=== PATIENT | male | born 1950 | race Caucasian/White ===

== ENCOUNTER 2017-01-06 22:30 | Emergency (ER) | payer OTHER ==
[~2017-01-06] VITALS: Ht 177.8 cm; Wt 72.0 kg
[2017-01-06 22:33] VITALS: BP 153/90; PULSE 91; RESP 22; O2SAT 99
--- NOTE | 2017-01-07 00:16 | ED.REPORT ---
HPI-General Illness Date of Service Jan 07, 2017 ED Provider: Sterling Corley MD Patient is a 66 year old male with a hx of DM and HTN who presents to the ED complaining of back pain that radiates to his abdomen. He reports that he has a "cyst" on the R side of his back close to L1. This was apparently a psoas abscess of uncertain cause. He was at [facility] on IV abx and released on the . He denies fevers, extremity pain, sciatic symptoms, incontinence, or any other symptoms. Nursing Notes Stated Complaint: LOWER BACK PAIN Chief Complaint: Back Pain or Injury Nursing Notes Reviewed: Yes Allergies: Coded Allergies: No Known Allergies (Unverified Allergy, Unknown, 02/17/16) General Time Seen by MD: 00:15 Chief Complaint Back pain Hx Obtained From: Patient Arrived By: Walk-in Onset Occurred: Onset unknown Symptom Duration: Since onset Location: : Back Quality: Painful Severity: Current: Moderate Severity: Maximum: Moderate Associated with: Reports: Abdominal pain Exacerbated by: Moving affected area Relieved by: Remaining still Recent Healthcare: Recent doctor visit Similar Sx Previous: Yes Past Medical History Past Medical History Peripheral neuropathy Psoas abscess Diabetes Hypertension Reports: Diabetes mellitus, Hypertension Past Surgical History Left knee surgery Reports: Cataract surgery, Inguinal hernia repair Smoking History Unknown if Ever Smoker Social History Alcohol Use: Denies alcohol use Drug Use: THC Ambulatory Status Independent Review of Systems Full Review of Systems Constitutional: Denies: Fever GI: Reports: Abdominal pain Musculoskeletal: Reports: Back pain, Denies: Extremity pain Neurologic: Denies: Bladder dysfunction, Bowel dysfunction Complete sys rev & neg: except as marked. Physical Exam Vital Signs Vital Signs Date Time Temp Pulse Resp B/P Pulse Ox O2 Delivery O2 Flow Rate FiO2 01/07/17 06:41 36.8 80 14 152/78 98 Room Air 01/07/17 04:15 36.8 86 16 156/88 96 Room Air 01/07/17 02:00 36.7 88 20 148/86 99 Room Air 01/06/17 22:33 36.4 91 22 153/90 99 Room Air Initial VS: Reviewed Head / Eyes: Atraumatic, Normocephalic Neck: Full range of motion Respiratory: No respiratory distress Cardiovascular: Regular rate & rhythm, Heart sounds normal, Intact distal pulses Psychiatric: Mood/affect normal, Behavior normal, Normal thought content General/Constitutional: Awake, Alert, No acute distress, Well appearing, Well developed Back: Atraumatic Mildly tender with flexion of hips Lower Extremity / Pelvis / MS: No deformity Distal sensation is baseline Skin: Warm, Dry Color / Condition: Positive: Rash present Rash / Lesion Notes: Rash consistent with shingles present on R side of abdomen Neurologic: Oriented X3, Speech NL Interpretation & Diagnostics Lab Results Interpretation Result Diagram: 01/07/17 0050 01/07/17 0050 Test 01/07/17 00:50 01/07/17 01:00 White Blood Count 7.8th/mm3 (3.8-10.1) Red Blood Count 4.12mil/mm3 (4.40-5.80) Hemoglobin 10.9g/dL (13.8-17.2) Hematocrit 32.2% (41.0-50.0) Mean Corpuscular Volume 78.2fL (81-100) Mean Corpuscular Hemoglobin 26.5pg (27.0-35.0) Mean Corpuscular Hemoglobin Concent 33.9% (32.0-37.0) Red Cell Distribution Width 15.5% (12.3-15.4) Platelet Count 515bil/L (150-400) Neutrophils (%) (Auto) 69.6% (40-74) Lymphocytes (%) (Auto) 17.4% (14-46) Monocytes (%) (Auto) 9.8% (4-12) Eosinophils (%) (Auto) 2.3% (0-5) Basophils (%) (Auto) 0.6% (0-3) Erythrocyte Sedimentation Rate 105mm/hr (0-30) Prothrombin Time 10.8sec (8.1-12.5) Prothromb Time International Ratio 1.01ratio Activated Partial Thromboplast Time 18.9sec (22.8-33.0) Sodium Level 131mEq/L (134-144) Potassium Level 3.9mEq/L (3.5-5.2) Chloride Level 90mEq/L (97-108) Carbon Dioxide Level 18mmol/L (18-29) Blood Urea Nitrogen 16mg/dL (8-27) Creatinine 0.75mg/dL (0.76-1.27) Estimat Glomerular Filtration Rate 111mL/min (>59) Glucose Level 162mg/dL (60-99) Lactic Acid Level 1.9mmol/L (0.4-2.0) Calcium Level 9.9mg/dL (8.5-10.1) Phosphorus Level 2.8mg/dL (2.5-4.9) Magnesium Level 1.3mg/dL (1.6-2.6) Total Bilirubin 0.4mg/dL (0.0-1.2) Aspartate Amino Transf (AST/SGOT) 19U/L (0-50) Alanine Aminotransferase (ALT/SGPT) 14U/L (0-44) Alkaline Phosphatase 84U/L (25-160) Troponin T 0.010ug/L (0.0-0.011) Total Protein 8.6g/dL (6.4-8.4) Albumin 3.9g/dL (3.4-5.0) Lipase 10U/L (13-60) Procalcitonin 0.07ng/mL (0.00-0.08) Urine Color Yellow (YELLOW) Urine Appearance Clear (CLEAR,HAZY) Urine pH 8.0 (5.0-8.0) Urine Specific [place] 1.015 (1.003-1.035) Urine Protein Tracemg/dL (NEG,TRACE) Urine Glucose (UA) Negativemg/dL (NEGATIVE) Urine Ketones 80mg/dL (NEGATIVE) Urine Occult Blood Negative (NEGATIVE) Urine Nitrite Negative (NEGATIVE) Urine Bilirubin Negative (NEGATIVE) Urine Urobilinogen Normalmg/dL (NORMAL) Urine Leukocyte Esterase Negative (NEGATIVE) Urine RBC 0-2/hpf (0-2) Urine WBC 0-5/hpf (0-5) Urine Epithelial Cells Occasional/hpf (NONE-MOD) Urine Crystals None seen (NONE SEEN) Urine Bacteria None/hpf (NONE-FEW) Urine Hyaline Casts None/lpf (NONE) Urine Granular Casts None seen (NONE SEEN) Urine Waxy Casts None seen (NONE SEEN) Urine Red Blood Cell Casts None seen (NONE SEEN) Urine White Blood Cell Casts None seen (NONE SEEN) Urine Mucus None seen (None Seen) Urine Trichomonas None seen (NONE SEEN) Urine Yeast None (NONE SEEN) Urinalysis Comment None Urine Culture Reflexed Not indicated X-Ray Chest Interpretation Chest Xray Interpretation: Negative View: Portable, 1 view Interpretation / Wet Read by: Interpret - ED physician CT Abd / Pelvis Interpretation CONCLUSION: Findings of osteomyelitis/discitis with small bilateral associated psoas abscesses. Protrusion of soft tissue density posteriorly from the narrowed L1/2 disc space, narrowing the AP diameter of the spinal canal and compressing the thecal sac, secondary to abscess and/or disc extrusion. Distended gallbladder containing small gallstones. Denton Laureano M.D. Study type: Abdominal CT IV contrast Interpretation / Wet Read by: Interpret - Radiologist Re-Eval/Medical Decision Med Decision/Clinical Course 66-year-old with diabetes and a recent history of a psoas abscess, presents after conclusion of his antibiotic therapy with increasing pain. His initial imaging was [place] and then subsequent imaging at [facility]. We have no comparisons immediately available. His increased pain prompted a repeat CT scan, which shows bilateral psoas abscesses, discitis and osteomyelitis at the L2 level, and soft tissue mass from the disc pressing posteriorly into the spinal canal with 60% effacement of the thecal sac. Consultation and potential transfer sought with [facility], and spine surgery will not be available for consultation until 6 AM. Signed out to Dr. Galeano for disposition after that consultation is occurred. May require transfer. Time of Eval: 03:11 Re-Evaluation/Progress Note: Advised pt that [facility] will not view films until morning. Patient understands and agrees with plan. All questions addressed at this time. Consultation : Call Returned at: 03:08 Note: Discussed pt's case with [facility]. They refused to review his films until 0600. Counseled Regarding: Diagnosis, Lab results Discharge & Departure Shift Change Sign-Out Patient Care Transferred: Yes Discussed Complaint(s): Yes Laboratory Evaluation: Back, reviewed by me Imaging Studies: Done, wet read by me Transfer of care to Dr. Shukla at 0600. Primary Impression: Epidural abscess Discharge Condition All VS Reviewed: Yes Condition: Stable Referrals: [facility] Care Transferred to: Dr. Shukla Care Transferred at: 06:00 Scribe Attestation Portions of this note were transcribed by Luna Leone. I, Dr. Corley personally performed the history, physical exam and medical decision-making; I reviewed and confirmed the accuracy of the information in the transcribed note. Signed by: Luna Leone 01/07/2017, 0600 copies to: [facility] Glenn Corley MD Jan 07, 2017 00:16 LUNA LEONE Jan 07, 2017 00:23
[2017-01-07] MEDS ORDERED: Ondansetron 2 mg/mL 2 mL Inj IVPUSH ONE (00:25)
[2017-01-07 01:06] LABS: BASOPHILS % (AUTO) 0.6 % (0-3); EOSINOPHILS % (AUTO) 2.3 % (0-5); MONOCYTES % (AUTO) 9.8 % (4-12); Mean Corpuscular Hemoglobin 26.5 pg (27.0-35.0); Mean Corpuscular Volume 78.2 fL (81-100); NEUTROPHILS % (AUTO) 69.6 % (40-74); Platelet Count 515 bil/L (150-400)
[2017-01-07] MEDS: HYDROmorphone 0.5 mg/0.5 mL iSecure Syringe IVPUSH PRN ×4 (01:11→13:55)
[2017-01-07 01:20] LABS: INR 1.01 ratio
[2017-01-07 01:27] LABS: TROPONIN T 0.01 ug/L (0.0-0.011)
[2017-01-07 01:32] LABS: APPEARANCE,URINE CLEAR (CLEAR,HAZY); COLOR,URINE YELLOW (YELLOW); OCCULT BLOOD,URINE NEGATIVE (NEGATIVE); UROBILINOGEN,URINE NORMAL (NORMAL)
[2017-01-07 01:32] LABS: Magnesium 1.3 mg/dL (1.6-2.6); Phosphorus 2.8 mg/dL (2.5-4.9)
[2017-01-07 01:34] LABS: ERYTHROCYTE SEDIMENTATION RATE 105 mm/hr (0-30)
[2017-01-07 02:00] VITALS: BP 148/86; PULSE 88; RESP 20; O2SAT 99
[2017-01-07] MEDS ORDERED: Alum-Mag Hydrox-Simeth 30 mL Suspension PO ONE (03:10)
[2017-01-07 04:15] VITALS: BP 156/88; PULSE 86; RESP 16; O2SAT 96
[2017-01-07] MEDS ORDERED: Cefepime Inj 2,000 MG in Dextrose 5% Minibag Plus 100 ML IV ONE (06:25)
[2017-01-07] MEDS ORDERED: Vancomycin Inj 1,500 MG in 0.9% Sodium Chloride 500 ML IV ONE (06:35)
[2017-01-07 06:41] VITALS: BP 152/78; PULSE 80; RESP 14; O2SAT 98
[2017-01-07] MEDS ORDERED: Vancomycin Dose per Pharmacist XX SCH (08:30)
--- NOTE | 2017-01-07 08:50 | DRSVH ---
PROCEDURE: X-RAY CHEST ONE VIEW, PORTABLE ([id number]) INDICATIONS: psoas abscess, increased pain TECHNIQUE: One view of the chest was acquired. COMPARISON: None. FINDINGS: Surgical changes and devices: None. Lungs and pleura: No pleural effusions or pneumothorax. Lungs are clear. Mediastinum: Mediastinal contours appear normal. Heart size is normal. Bones and chest wall: No suspicious bony lesions. Overlying soft tissues appear unremarkable. IMPRESSION: No acute cardiopulmonary disease. Dictated by: Yuriy Tom [facility] Interpreted: Jo Wilson MD on 01/07/2017 at 8:49 Transcribed by: SELENE on 01/07/2017 at 8:49 Approved by: Jo Wilson MD, PhD on 01/07/2017 at 9:46
--- NOTE | 2017-01-07 10:29 | DRSVH ---
PROCEDURE: CT ABDOMEN AND PELVIS WITH CONTRAST ([id number]) INDICATIONS: psoas abscess TECHNIQUE: After the administration of intravenous contrast, 5 mm thick sections acquired from the diaphragm to the symphysis. 5 mm coronal and sagittal reformats were acquired. For radiation dose reduction, the following was used: automated exposure control, adjustment of mA and/or kV according to patient siz e. COMPARISON: None. FINDINGS: Image quality: Excellent. ABDOMEN: Lung bases: Lung bases are clear. Heart size is normal. Solid organs: Liver and spleen are normal in size and enhancement. Gallbladder contains multiple ga llstones. Biliary system is non dilated. Pancreas enhances normally. No adrenal nodules. Kidneys demonstrate normal size and enhancement, without hydronephrosis. Peritoneum and bowel: Bowel loops demonstrate normal wall thickness and caliber. No free fluid or a ir. The appendix is normal. Nodes and vessels: No retroperitoneal or mesenteric adenopathy by size criteria. Aorta and inferior vena cava are normal in size. Scattered atherosclerotic calcifications involving the abdominal and p elvic vasculature. Miscellaneous: No ventral hernias. PELVIS: Genitourinary: Bladder wall thickness is normal. Miscellaneous: No inguinal hernias or adenopathy. Bones: Vertebral body endplate destruction noted adjacent to the L1-L2 disc compatible with discitis/ osteomyelitis. Soft tissue density lesion adjacent to the posterior margin of the L1-L2 disc space tristan spicious for anterior epidural abscess is causing severe central canal stenosis. Paraspinous soft tis ericka inflammation noted adjacent to the L1 and L2 vertebral bodies. There is a small, approximately 2. 1 x 1.2 cm fluid collection with peripheral enhancement involving the anterior right psoas muscle com patible with abscess. There is an approximately 2.2 x 1.3 cm bilobed fluid collection with peripheral enhancement in the anterior left psoas muscle compatible with abscess Spine degenerative disc diseas e and facet arthropathy. IMPRESSION: 1. L1-L2 discitis/osteomyelitis. 2. Small bilateral psoas abscesses adjacent to the L1-L2 discitis. 3. Probable epidural abscess level of the L1-L2 disc space causing severe central canal stenosis. 4. Cholelithiasis. Dictated by: Jo Wilson MD, PhD on 01/07/2017 at 10:19 Approved by: Jo Wilson MD, PhD on 01/07/2017 at 10:27
[2017-01-07 10:47] VITALS: BP 156/86; PULSE 83; RESP 20; O2SAT 98
--- NOTE | 2017-01-07 11:20 | DRSVH ---
PROCEDURE: MRI CERVICAL SPINE WITH AND WITHOUT CONTRAST ([id number]) INDICATIONS: spinal abscess TECHNIQUE: Noncontrast sagittal T1 spin echo and T2 fast spin echo, sagittal STIR, foraminal oblique sagittal T2 fast spin echo, axial gradient echo or T2 fast spin echo through the cervical spine. After the admi nistration of contrast, axial and sagittal T1 spin echo with fat saturation through the cervical spin e. COMPARISON: [facility], MR, MR THORACIC SPINE W&WO CON, 01/07/2017, 9:12. [facility], MR, MR LUMBAR SPINE W&WO CON, 01/07/2017, 9:12. [facility], CT, CT ABD PELVIS W CON, 01/07/2017, 2:29. FINDINGS: Image quality: Excellent. Alignment and curvature: There is normal bony alignment. Marrow: There is diffusely increased marrow signal at C3, C4, C5, C6 and C7 with low level increased enhancement on postcontrast images. There is increased enhancement involving the intervertebral discs at C3-C4, C4-C5, C5-C6 and C6-C7, suspicious for discitis and vertebral osteomyelitis. Spinal cord: Visualized spinal cord has normal size and signal. No cerebellar tonsillar herniation. No abnormal intramedullary enhancement. Paraspinous soft tissues: Prevertebral soft tissue thickening in lower cervical spine. There is a sm all amount of prevertebral fluid at level of C4 and C5. No paravertebral masses or suspicious enhance ment. C2-3: Mild loss of disc height and moderate disc desiccation. There is broad posterior disc bulge. The central canal is mildly narrowed. Mild bilateral foraminal stenosis. C3-4: Severe loss of disc height and abnormal disc enhancement suspicious for vertebral osteomyelitis . There is broad posterior disc bulge. The central canal is mildly narrowed. Mild bilateral foramin al stenosis. C4-5: Mild loss of disc height and moderate to severe disc desiccation. There is abnormal disc enhan cement suspicious for vertebral osteomyelitis. There is broad posterior disc bulge with large disc o steophyte complex. Mild bilateral facet arthropathy. The central canal is moderately narrowed. Sever e left and moderate right foraminal stenosis. C5-6: Moderate to severe loss of disc height and disc desiccation. There is abnormal disc enhancement suspicious for vertebral osteomyelitis. There is broad posterior disc bulge with disc osteophyte co mplex. Mild bilateral facet arthropathy. The central canal is moderately narrowed. Mild to moderate bilateral foraminal stenosis. C6-7: Moderate to severe loss of disc height and disc desiccation. There is abnormal disc enhancemen t suspicious for vertebral osteomyelitis. There is broad posterior disc bulge with large disc osteop hyte complex. Mild bilateral facet arthropathy. The central canal is mildly narrowed. Mild to modera te bilateral foraminal stenosis. C7-T1: Normal appearance. IMPRESSION: 1. Diffuse abnormal marrow signal involving C3, C4, C5, C6 and C7 with mildly increased enhancement. There is also enhancement in intervertebral discs at C3-C4, C4-C5, C5-C6 and C6-C7. The MRI findings are consistent with discitis and vertebral osteomyelitis. 2. There is prevertebral soft tissue thickening in lower cervical spine. There is small amount of pre vertebral soft tissue fluid anterior to C3 and C4 which could represent developing abscess. 3. Multilevel degenerative disc disease and facet arthropathy as described. 4. Moderate central canal stenosis at C4-C5, C5-C6, and mild central canal stenosis at C2-C3, C3-C4 a nd C6-C7. 5. Multilevel foraminal stenosis as described. Dictated by: Aleksandar Coley M.D. on 01/07/2017 at 11:07 Transcribed by: JOSE RAMON on 01/07/2017 at 11:21 Approved by: Aleksandar Coley M.D. on 01/07/2017 at 18:15
--- NOTE | 2017-01-07 12:14 | DRSVH ---
PROCEDURE: MRI LUMBAR SPINE WITH AND WITHOUT CONTRAST ([id number]) INDICATIONS: spinal abscess TECHNIQUE: Noncontrast sagittal T1 spin echo and T2 fast spin echo, sagittal STIR, axial T1 and T2 fast spin ech o through the lumbar spine. In cases with scoliosis, additional coronal T2 fast spin echo may be per formed. After the administration of contrast, sagittal and axial T1 spin echo with fat saturation th rough the lumbar spine. COMPARISON: [facility], CT, CT ABD PELVIS W CON, 01/07/2017, 2:29. [facility], MR, MR CERVICAL SPINE W&WO CON, 01/07/2017, 9:12. [facility], MR, MR THORACIC SPINE W&W O CON, 01/07/2017, 9:12. FINDINGS: Image quality: Excellent. Alignment and curvature: There is normal bony alignment. Marrow: There is diffuse abnormal marrow signal and abnormal enhancement in L1 and L2 vertebral eddi s, consistent with vertebral osteomyelitis. There is also abnormal enhancement involving the L1-L2 in tervertebral disc consistent with discitis. A large posterior osteophyte at L1-L2 demonstrates abnor mal enhancement. There is severe narrowing of the central canal at this level. There is associated ep idural enhancement consistent with epidural spread of infection. There is ill-defined fluid signal in epidural space, suspicious for epidural abscess. There are paravertebral enhancement and fluid colle ctions involving the adjacent psoas muscles bilaterally consistent with abscess. On the left side, co mplex fluid collection measures 1.3 x 2.8 cm. On the right side, there is if fluid collection measure s 1.6 x 2.6 cm. There is loss of vertebral body height of L1 and L2. Spinal cord: Conus medullaris terminates at the L1-L2 level. Visualized spinal cord demonstrates no rmal signal, without suspicious enhancement. Paraspinous soft tissues: No paravertebral masses or abnormal enhancement. L1-L2: Large posterior disc osteophyte causing severe central canal stenosis. There is abnormal enhan cement of the ossified consistent with osteomyelitis. There is diffuse abnormal epidural enhancement with ill-defined complex fluid consistent with epidural abscess. L2-L3: Moderate loss of disc height and disc desiccation. There is subtle increased disc enhancement suspicious for developing discitis. There is posterior disc bulge and disc osteophyte complex. The central canal is mildly narrowed. Severe bilateral foraminal stenosis. L3-L4: Moderate loss of disc height and disc desiccation. There is increased T2 signal in contrast of the intervertebral disc suspicious for developing discitis. There is posterior disc bulge and disc osteophyte complex. Severe bilateral facet arthropathy. The central canal is patent. Moderate to se anabella bilateral foraminal stenosis. L4-L5: Moderate loss of disc height and disc desiccation. There is increased disc T2 signal and con trast enhancement suspicious for developing discitis. There is posterior disc bulge and disc osteophy te complex. Severe bilateral facet arthropathy. The central canal is patent. Moderate to severe bila teral foraminal stenosis. L5-S1: Severe loss of disc height and broad posterior disc bulge. There is mild bilateral facet arthr opathy. No central canal stenosis. Moderate left and mild right foraminal stenosis. IMPRESSION: 1. Discitis and vertebral osteomyelitis involving L1 and L2 vertebral bodies, as well as the L1-L2 in tervertebral disc. There is abnormal epidural enhancement and complex fluid collections involving adj acent paravertebral soft tissue consistent with paravertebral/epidural abscesses as described above. A large posterior osteophyte demonstrates abnormal enhancement extruding posteriorly abutting the ant erior surface of the thecal sac which is severely narrowed. Neurosurgical consultation is recommended . 2. There is increased disc T2 signal and postcontrast enhancement at L2-L3, L3-L4 and L4-L5 suspiciou s for early or developing discitis. No paravertebral soft tissue thickening or fluid collections at t hese levels. 3. Multilevel degenerative disc disease and facet arthropathy as described. 4. Severe central canal stenosis at L1-L2 and mild central canal stenosis at L2-L3. 3. Multilevel foraminal stenosis as described. The result was discussed with Dr. Leija in ER on 01/07/2017 at 1155 hours. Dictated by: Aleksandar Coley M.D. on 01/07/2017 at 11:21 Transcribed by: JOSE RAMON on 01/07/2017 at 12:15 Approved by: Aleksandar Coley M.D. on 01/07/2017 at 18:11
--- NOTE | 2017-01-07 12:17 | DRSVH ---
PROCEDURE: MRI THORACIC SPINE WITH AND WITHOUT CONTRAST ([id number]) INDICATIONS: spinal abscess TECHNIQUE: Noncontrast sagittal T1 spin echo and T2 fast spin echo, sagittal STIR, axial T1 and T2 fast spin ech o through the thoracic spine. After the administration of contrast, axial and sagittal T1 spin echo with fat saturation through the thoracic spine. COMPARISON: None. FINDINGS: Image quality: Excellent. Alignment and curvature: There is normal bony alignment. Marrow: Abnormal marrow signal and enhancement in L1 and L2, as well as L1-L2 intervertebral disc as described in lumbar spine report. Mild degenerative marrow signal changes are present at T3 and T4. Spinal cord: Visualized spinal cord is of normal signal and size, without abnormal enhancement. Paraspinous soft tissues: No paravertebral masses or abnormal enhancement. Miscellaneous: Central canal and foramina appear widely patent at all scanned levels. There is mild degenerative disease throughout the lumbar spine. Mild central canal stenosis at T7-T8. IMPRESSION: 1. No evidence for discitis/vertebral osteomyelitis in the thoracic spine. 2. Discitis and vertebral osteomyelitis at L1-L2. Please see separate lumbar spine MRI report. 3. Mild central canal stenosis at T7-T8 secondary to posterior disc bulge. Dictated by: Aleksandar Coley M.D. on 01/07/2017 at 12:15 Transcribed by: JOSE RAMON on 01/07/2017 at 12:18 Approved by: Aleksandar Coley M.D. on 01/07/2017 at 18:11
[2017-01-07] MEDS ORDERED: ACYCLOVIR IV ONE (12:28)
[2017-01-07] MEDS ORDERED: SODIUM CHLORIDE 0.9% IV ONE (12:28)
[2017-01-07 13:48] VITALS: BP 160/91; PULSE 85; RESP 20; O2SAT 98
[2017-01-07] MEDS ORDERED: Ondansetron 2 mg/mL 2 mL Inj IVPUSH PRN (13:50)
--- NOTE | 2017-01-07 15:40 | CONS ---
[address] [address] CONSULTATION REPORT PATIENT: ARTURO TYSON : 1950 MR#: [id number] ADMIT: 01/06/2017 JOB ID: [id number] DATE OF SERVICE: 01/07/2017 INFECTIOUS DISEASE CONSULTATION: I thank Dr. Sterling Corley of the emergency department staff. 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 HISTORY OF PRESENT ILLNESS: The patient is a 66-year-old gentleman on whom we have very few records. We know in speaking to the patient he has an underlying history of diabetes as well as PTSD incurred during his service in the [place]. He is considered 100% [place] because of [place]. The patient resides by himself on [place] and he tells us he tells us that he is usually relatively healthy and quite active. The patient was hospitalized back in October at [facility] in [place] with what was described as a psoas abscess. He received a course of intravenous antibiotics there and was subsequently transferred to the [facility] nursing [facility]. There he received another course of IV antibiotics which he says was about 10 days long, then his antibiotics were ended, only to have some recurrence of his symptoms. The antibiotics were then restarted and continued for another 10 days or so, and then finally stopped. At that point he states that he had a normal white count and that a followup CT scan, perhaps done in [place], showed improvement. Following that, the patient was discharged back to his home on [place]. He tells us that throughout this long odyssey his back pain never completely resolved and in fact started to get worse again rather precipitously after he stopped his antibiotics and went home. Because of that, the patient came to our emergency department last night for reevaluation and reconsideration of his increasing back pain. His back pain is lower thoracic to lumbar region and he states that it had been getting worse for several days, but there was no associated fevers, chills, and not much in the way of sweats. He denied any significant pulmonary or GI symptoms. He denied any bowel or bladder problems and has denied weakness or numbness in his lower extremities or in the saddle area around his perineum. After he was seen in the ER this morning, the patient underwent CT scanning which raised grave concerns about vertebral osteo, continued psoas abscess, and perhaps spinal epidural abscess. I was contacted this morning and on this basis recommended the patient be transferred to a center with neurosurgical capabilities. So far, that has not happened and so I came down to see the patient early this afternoon in the ER. There I encountered him lying in bed, saying that he had considerable pain in his back depending on particular movements he made, but that he was not weak in the legs, was not having bowel or bladder problems, and not having fevers or chills. He does have a moderate degree of pain, interestingly more in his thoracic spine than lumbar, and he also complains of the recent development of neck pain which sounds to be relatively new. It has also been noted that he has a rash extending around his right side which is zosteriform. PAST MEDICAL HISTORY: Diabetes and severe PTSD. We know little else about this patient as we really have no records at our facility, though we have requested them are waiting for records to be faxed from [facility] from his long hospitalization there. SOCIAL HISTORY: The patient quit drinking and smoking decades ago. He does not ever inject illicit substances. He has been [facility] for a couple of decades and has just with at home "working on myself." He denies unusual exposures such as raw foods, raw cheese, unpasteurized milk, or exotic foreign travel. FAMILY HISTORY: Completely negative for tuberculosis in first- and second-degree relatives. He denies any contacts or exposures to TB, though it is notable that he did serve in both the [place] during his career in the [employer]. REVIEW OF SYSTEMS: Was done. The patient reports a 25-pound weight loss over the past 2-3 months coincident with his back infection. Before that, he was not losing weight apparently. He states he has no significant headache, no visual changes, and no sore throat or trouble swallowing. He has a bit of neck pain which seems to be progressive and a lot of lower thoracic pain which is definitely progressive. He denies significant cough or shortness of breath. He has no chest pain. No nausea, vomiting, or diarrhea. He has no bowel or bladder problems. He is aware when he needs to urinate or defecate and has no problems doing so at the appropriate time. He denies any weakness, heaviness, or unusual sensations in his lower extremities or around his groin. He is unaware basically that he has a zosteriform rash which extends around about T10-T12 area. Review of systems is otherwise normal. PHYSICAL EXAMINATION: Reveals a somewhat gaunt-appearing gentleman. He is not all that thin but he does appear as perhaps he lost lot of weight. Temperature is 36.6. He has been afebrile throughout his short stay in the ER, which now is about 16 hours. Pulse in the 80s, respiratory rate 20, blood pressure 160/91, saturating 98% on room air. He is alert and oriented. He moves his neck without difficulty. He does have some minimal temporal wasting bilaterally. Eyes without scleral icterus or arcus senilis. Nose normal. Oral cavity: Reasonable dentition. No thrush. No pharyngitis. No cervical adenopathy. Lungs are basically clear. Cardiac tones regular rate and rhythm. No murmur. The abdomen is soft and nontender, without organomegaly or ascites. He does not have suprapubic fullness. No Cat catheter is present. He does have a T11-josé antonio dermatomal rash which is classic for early zoster as there is no crusting or opacification yet. The lower extremities are perhaps slightly thin, but without any edema or evidence of synovitis. He has excellent peripheral pulses and normal capillary refill. His strength is 5/5 bilaterally. The patient can raise his head directly and raise his legs equally well over his head with absolutely no problem. His reflexes are also normal in the knees and ankles. Sensation is essentially intact as well. LABORATORY: Labs include white count 7800, platelet count 515, sed rate 105. Creatinine is 0.75. Lactic acid normal. LFTs normal. Lipase 10. Albumin 3.9, not bad. Urinalysis without white cells. Two blood cultures from here are pending. We contacted [facility] to see what had transpired with those October blood cultures they did when he had the psoas abscesses, and they were actually all negative. IMAGING: Here includes a chest radiograph which is normal and an abdominal CT which shows L1-L2 osteo and associated diskitis, as well as a probable epidural abscess with severe central canal stenosis, and this is the original CT that caused so much concern. After I discussed this case with the ER physicians, an MRI of the entire spine was obtained. The most involved area is the lumbar spine, and we reviewed these films in the radiology suite with one of our radiologists. It shows vertebral osteo involving L1-L2, as well as the discs. There is abnormal enhancement and fluid collections in the paravertebral tissues. There does appear to be impingement upon the cord itself. The degree of the cord impingement is defined as severe. There residual psoas abscesses bilaterally are also seen. The cervical MRI, which was done for completeness sake out of concern he might have a multilevel spinal epidural abscess, is worrisome. It shows an increased enhancement C3 through C7 with the discs and the vertebral bodies lighting up. These findings are consistent with diskitis and vertebral osteo in the cervical spine. The thoracic spine is thankfully relatively normal. IMPRESSION: This is an extremely worrisome case of a gentleman who was admitted with psoas abscess two months ago at [facility]. He received empiric antibiotics, which I presume, but do not know yet, were directed at staphylococcal organisms. He was then transferred to [facility] in [place], where he received a much longer course of antibiotics, with apparent resolution of leukocytosis at least. A followup CT was done which I can only presume showed improvement and his antibiotics were stopped and he went home. He now returns with increasing back pain. Though he does not have constitutional symptoms of infection at this point, he does have profoundly elevated inflammatory markers with sed rate over 100 and an exam which is concerning for lower thoracic/upper lumbar pain, as well as cervical pain. There are not yet any neurologic deficits but he does have a very worrisome lesion at L1-L2 with considerable impingement of the cord. The proper time to transfer patients like this with worrisome spinal epidural abscesses is prior to the onset of neurologic findings such as radicular symptoms, bowel or bladder problems, or worst of all paraplegia. I think it is essential that this patient be transferred to a center with neurosurgical capabilities today. I have discussed this throughout the day with the ED doctor and he is working hard to contact the various transfer centers and make an effective and safe transfer of this patient by the end of the day. As a secondary issue, he does have zoster on the right side which likely is a consequence of his weight loss and illness over the last couple of months. I do not think this is in any way related to what is going on in his epidural space. RECOMMENDATIONS: 1. We await the blood cultures. 2. The patient is currently being covered with vancomycin and cefepime, which I think are reasonable options at this point. The patient is also on IV acyclovir. It is not clear to me that he needs IV acyclovir as he would probably be fine with Valtrex. The vancomycin should be re-dosed as needed by the pharmacy to maintain trough levels of 15-20. I would continue the cefepime at a dose of 2 g IV q.8 h. The IV acyclovir could easily be transitioned to Valtrex 1 g t.i.d. 3. A MRSA swab of the nares should be done. 4. QuantiFERON Gold should be done. 5. Brucella antibody should be added. Thank you very much for allowing us to see this interesting patient in consult.
[2017-01-07 15:56] VITALS: BP 152/92; PULSE 94; RESP 20; O2SAT 98
== END 2017-01-07 15:56 | disposition short-term general hospital (02) ==
LOC: SED 22:30
DX: G06.1 Intraspinal abscess and granuloma (principal); M46.26 Osteomyelitis of vertebra, lumbar region; M46.46 Discitis, unspecified, lumbar region; E11.40 Type 2 diabetes mellitus with diabetic neuropathy, unspecified; I10 Essential (primary) hypertension
CPT/HCPCS: 36415; 71010; 72156; 72157; 72158; 74177; 80053; 81000; 82948; 83605; 83690; 83735; 84100; 84145; 84484; 85025; 85610; 85651; 85730; 86622; 87040; 96365; 96367; 96372; 96375; 96376; 99291; 99292; A9585; G0433; J0133; J0692; J1170; J1885; J2060; J2405; J3370; J7040; Q9967